=== PATIENT | female | born 1990 | race Caucasian/White ===

== ENCOUNTER 2018-03-18 14:51 | Day surgery (SDC) | payer OTHER ==
[2018-03-18 15:20] VITALS: BP 128/82; TEMP 99.5
[2018-03-18 15:22] VITALS: BMI 32.3
--- NOTE | 2018-03-19 01:06 | PRG ---
DATE OF SERVICE: 03/18/2018 TIME OF SERVICE: 1800 hours. PRESENTING COMPLAINT: Contractions.S HISTORY OF PRESENT ILLNESS: Ms. Joseph is a patient of Dr. Reed at 37 weeks gestation. She is a G 2 P1 lives in [place]. She was seen in the office today, noted to be 3 cm, told that she had co ntractions during lunch of more than 12 in an hour, so presented to Labor and Delivery unit. She pre sents complaining of about 12 contractions in the past hour. She denies rupture of membranes or blee ding. She reports an active fetus. [facility] HISTORY: x1, 12-hour labor with PPROM at 35 weeks in 2014. Blood type O positive, an tibody negative, Pap negative, rubella immune, VDRL nonreactive, hepatitis B, GC chlamydia negative, group B strep is negative on 02/26/2018. The patient has a history of abnormal Pap in the distant wi st and cryo x2. PAST MEDICAL HISTORY: None. PAST SURGICAL HISTORY: cryo. SOCIAL HISTORY: Denies tobacco, alcohol, or IV drug abuse. FAMILY HISTORY: Noncontributory. ALLERGIES: None. MEDICATIONS: vitamins. PHYSICAL EXAMINATION: GENERAL: White female. VITAL SIGNS: On initial presentation, temperature was 99.5, second temperature was 98.6, respiration s 18, pulse 96, blood pressure 126/82. HEENT: Within normal limits. LUNGS: Clear to auscultation bilaterally. HEART: Regular rhythm. ABDOMEN: Soft and nontender with occasional palpable contractions. Fundal height 37 cm. FHTs 130s to 140s. PELVIC: Vulva without lesions. Vagina without discharge. Cervix 3, 50, -2, cephalic, bag of water intact, blots with ease x2, approximately 2 hours apart. EXTREMITIES: Without clubbing, cyanosis or edema. heart rate tracing x2 revealed a category 1 heart rate tracing with baseline 130s to 140s , positive accelerations, no decelerations. Initially upon presentation, the patient was having cont ractions approximately every 6-10 minutes. After 2 hours, her contractions had decreased to rather o nly occasional, perhaps every 20-30 minutes. IMPRESSION: No evidence of active labor. PLAN: Discharge home. ER precautions. The patient is to keep scheduled followup in [address] Tolbert's office.
== END 2018-03-18 18:20 | disposition home or self-care (01) ==
LOC: L&D/OP 14:51
PROVIDERS: ATTEND Obstetrics & Gynecology
DX: O47.1 False labor at or after 37 completed weeks of gestation (principal); Z3A.37 37 weeks gestation of pregnancy

== ENCOUNTER 2018-03-20 10:09 | Inpatient (IN) | payer OTHER ==
[2018-03-20] MEDS: Lactated Ringer's 1,000 ML IV SCH ×2 (11:05→13:20)
[2018-03-20] MEDS ORDERED: DISCONTINUE ALL PREVIOUS NARCOTICS FS SCH (11:30)
[2018-03-20] MEDS ORDERED: Bupivacaine 0.5% 20 ML, fentaNYL Citrate/PF 400 MCG in Sodium Chloride 0.9% 72 ML EPIDURAL SCH (11:30)
[2018-03-20 11:51] VITALS: BMI 32.5
[2018-03-20] MEDS ORDERED: Ibuprofen 800 MG TAB PO PRN (11:52)
[2018-03-20] MEDS ORDERED: Butorphanol Tartrate 1 MG/ML VIAL SLOW IVP PRN (11:52)
[2018-03-20] MEDS ORDERED: HYDROcodone/Acetaminophen 5/325 mg Tablet PO PRN ×2 (11:52)
[2018-03-20] MEDS ORDERED: Docusate 100 MG CAP PO PRN (11:52)
[2018-03-20] MEDS ORDERED: Acetaminophen 500 MG TAB PO PRN (11:52)
[2018-03-20] MEDS ORDERED: Promethazine HCl 25 MG/ML VIAL IM PRN ×2 (11:52→12:49)
[2018-03-20] MEDS ORDERED: NS / Oxytocin 40 units/1000ml 1,000 ML IV PRN (11:52)
[2018-03-20] MEDS ORDERED: Diphenoxylate HCl/Atropine Tablet PO PRN ×2 (11:52)
[2018-03-20] MEDS ORDERED: Lidocaine 1% (PF) 30 ML VIAL SC PRN (11:52)
[2018-03-20] MEDS ORDERED: Ondansetron HCl/PF 4 MG/2 ML Vial IVP PRN ×3 (11:52→18:31)
[2018-03-20] MEDS ORDERED: NS w/ Oxytocin 10 units 500 ML IV SCH (12:00)
[2018-03-20 12:19] LABS: Hemoglobin 13.2 g/dL (12.0-16.0); Mean Corpuscular HGB CONC 34.2 g/dL (32.0-36.0); Mean Corpuscular Hemoglobin 30.4 pg (27.0-31.0); Mean Platelet Volume 8.6 fL (7.4-10.4); Platelet Count 203 thou/uL (130-400); RBC Distribution Width 12.5 % (11.5-14.5); Red Blood Cell (RBC) Count 4.33 mill/uL (4.20-5.40); White Blood Cell (WBC) Count 8.8 thou/uL (4.8-10.8)
[2018-03-20] MEDS ORDERED: Acetaminophen 325 MG TAB PO PRN (12:49)
[2018-03-20] MEDS ORDERED: ePHEDrine/0.9% NaCl/PF SYRINGE 50 mg/10 ml SLOW IVP PRN (12:49)
[2018-03-20] MEDS ORDERED: diphenhydrAMINE 50 MG/ML VIAL IVP PRN (12:49)
[2018-03-20] MEDS ORDERED: Eucerin (Mineral Oil/Petrolatum,White) 30 gm Jar TOP PRN (12:49)
[2018-03-20] MEDS ORDERED: Lactated Ringer's 500 ML IV PRN (12:49)
[2018-03-20] MEDS ORDERED: Naloxone HCl 0.4 mg/ml Vial IVP PRN ×2 (12:49)
[2018-03-20 12:53] LABS: Syphilis Antibody Nonreactive (Nonreactive); Syphilis Antibody Index 0.05 S/CO (<1.00 Non-Reactive)
[2018-03-20 12:54] LABS: HBSAg Index 0.25 S/CO (0-0.99); Hep B Surf Ag Non-Reactive S/CO (NonReactive)
[2018-03-20] MEDS ORDERED: fentaNYL Citrate/PF 400 MCG, Bupivacaine 0.5% 20 ML in Sodium Chloride 0.9% 72 ML EPIDURAL SCH (13:00)
[2018-03-20] MEDS ORDERED: Communication Order-Pharmacy FS SCH (13:00)
[2018-03-20] MEDS ORDERED: NS / Oxytocin 40 units/1000ml 1,000 ML ONE (15:09)
[2018-03-20] MEDS ORDERED: Lidocaine 1% (PF) 30 ML VIAL ONE (15:09)
[2018-03-20] MEDS ORDERED: Preparation H Ointment 28 GM TUBE PR PRN (18:31)
[2018-03-20] MEDS ORDERED: Benzocaine/Menthol 20-0.5% 60 ML CAN TOP PRN (18:31)
[2018-03-20] MEDS ORDERED: diphenhydrAMINE 25 MG CAP PO PRN (18:31)
[2018-03-20] MEDS ORDERED: Adacel (T-DAP) 0.5 ML VIAL IM ONE (18:31)
[2018-03-20] MEDS ORDERED: Acetaminophen/Codeine 30-300mg Tablet PO PRN (18:31)
[2018-03-20] MEDS ORDERED: Lanolin Ointment 7 GM TUBE TOP PRN (18:31)
[2018-03-20] MEDS ORDERED: Milk Of Magnesia 30 ML UDCUP PO PRN (18:31)
[2018-03-20] MEDS ORDERED: Bisacodyl 10 MG SUPP PR PRN (18:31)
[2018-03-20] MEDS ORDERED: NS / Oxytocin 40 units/1000ml 1,000 ML IV SCH (18:45)
[2018-03-20] MEDS: Acetaminophen/Codeine 30-300mg Tablet PO PRN (19:35)
[2018-03-20] MEDS ORDERED: ePHEDrine/0.9% NaCl/PF SYRINGE 50 mg/10 ml ONE (20:00)
[2018-03-20] MEDS ORDERED: Bupivacaine 0.25% HCL 30 ML VIAL ONE (20:00)
[2018-03-20] MEDS: Ibuprofen 800 MG TAB PO SCH (22:10)
[2018-03-20] MEDS: Docusate Calcium (SURFAK) 240 MG CAP PO SCH (22:10)
[2018-03-21] MEDS: Ibuprofen 800 MG TAB PO SCH ×3 (05:05→21:27)
[2018-03-21] MEDS: Ferrous Sulfate 325 MG TAB PO SCH ×2 (07:37→16:53)
[2018-03-21] MEDS: Prenatal Vitamin 1 TAB PO SCH (09:22)
[2018-03-21] MEDS: Docusate Calcium (SURFAK) 240 MG CAP PO SCH ×2 (09:22→21:26)
[2018-03-21] MEDS: Acetaminophen/Codeine 30-300mg Tablet PO PRN (12:53)
[2018-03-22] MEDS: Ibuprofen 800 MG TAB PO SCH (05:54)
[2018-03-22] MEDS: Ferrous Sulfate 325 MG TAB PO SCH (07:26)
[2018-03-22 07:59] VITALS: BP 123/79; TEMP 97.9
[2018-03-22] MEDS: Docusate Calcium (SURFAK) 240 MG CAP PO SCH (09:29)
[2018-03-22] MEDS: Prenatal Vitamin 1 TAB PO SCH (09:29)
== END 2018-03-22 12:45 | disposition home or self-care (01) | DRG 775 ==
LOC: L&D/OP 10:09 → L&D 10:10 → 3SW 20:26
PROVIDERS: ADMIT Obstetrics & Gynecology; ATTEND Obstetrics & Gynecology
PROC: 10E0XZZ Delivery of Products of Conception, External Approach (ICD-10-PCS; principal; 2018-03-20)
PROC: 4A0HXCZ Measurement of Products of Conception, Cardiac Rate, External Approach (ICD-10-PCS; 2018-03-20)
DX: O80 Encounter for full-term uncomplicated delivery (principal); Z3A.37 37 weeks gestation of pregnancy; Z37.0 Single live birth
CPT/HCPCS: 51702; 86780; 86850; 86900; 86901; 87340; 90715; 99283; J1200; J2001; J2310; J3010; J3490; J7050; S0020